=== PATIENT | male | born 1975 | race Caucasian/White ===

== ENCOUNTER 2021-05-13 22:39 | Emergency (ER) | payer BC ==
[~2021-05-13 22:39] MED LIST: NORCO 5-325 TA1 EACH PO
[2021-05-13 23:02] LABS: HEMOGLOBIN 15.5 gm/dl (14.0-17.5); RED BLOOD COUNT 4.89 M/UL (4.20-5.50); WHITE BLOOD COUNT 10.1 K/UL (4.5-11.0)
[2021-05-13 23:30] LABS: BUN/CREATININE RATIO 7 (0-10)
== END 2021-05-14 02:35 | disposition left against medical advice (07) ==
LOC: ER1 22:39
PROVIDERS: Physician Assistant
DX: R07.9 Chest pain, unspecified (principal); F17.210 Nicotine dependence, cigarettes, uncomplicated
CPT/HCPCS: 71045; 80053; 82550; 82553; 83874; 83880; 84484; 85025; 85379; 85610; 85730; 93005; 99285